=== PATIENT | female | born 1980 | race Caucasian/White ===

== ENCOUNTER → 2021-08-09 | Outpatient (CLI) | payer OTHER ==
[~2021-08-09] MED LIST: ALBU90I INH; ALBU90OI INH; ALBU90OI6 INH; ALPR.5 PO; ALPR.5CR PO; Amoxicillin500 MG PO; EFFEXOR; HYDACE5; IBUP800; LAMO100 PO; METPRE4DP PO; OXYACE5T PO; PENVK500 PO; PRED10 PO; PROAIR; Prednisone20 MG PO; QVAR7.3 G1 IH; VENL150ER PO; Ventolin Soln3 ML INH; Zofran Odt4 MG SL
[2021-08-10 12:10] LABS: HPV 16 Negative (Negative); HPV 18 Negative (Negative); HPV OTHER HR TYPES Negative (Negative)
== END ==
LOC: LAB SHORT 15:52 → LAB 15:52
PROVIDERS: Obstetrics & Gynecology
DX: Z01.419 Encounter for gynecological examination (general) (routine) without abnormal findings (principal)
CPT/HCPCS: 87624; G0123

== ENCOUNTER → 2021-08-09 | Outpatient (CLI) | payer OTHER | LOC: LAB SHORT 07:59 → LAB 07:59 | DX: N92.0 Excessive and frequent menstruation with regular cycle (principal) | CPT/HCPCS: 88305 ==

== ENCOUNTER → 2021-10-26 | Outpatient (CLI) | payer OTHER | END | disposition home or self-care (01) | LOC: LAB 13:36 → LAB SHORT 13:36 | DX: N30.00 Acute cystitis without hematuria (principal) | CPT/HCPCS: 87086 ==

== ENCOUNTER → 2022-07-11 | Outpatient (CLI) | payer OTHER | LOC: LAB SHORT 10:30 | DX: R30.0 Dysuria (principal) ==

== ENCOUNTER → 2022-10-17 | Outpatient (CLI) | payer OTHER | LOC: LAB SHORT 16:30 → LAB 16:30 | DX: R30.0 Dysuria (principal) | CPT/HCPCS: 87077; 87086; 87186 ==

== ENCOUNTER → 2022-12-04 | Outpatient (CLI) | payer OTHER | END | disposition home or self-care (01) | LOC: LAB SHORT 11:19 → PLD 11:19 | DX: D48.5 Neoplasm of uncertain behavior of skin (principal) | CPT/HCPCS: 88305 ==

== ENCOUNTER 2024-10-13 11:32 | Day surgery (SDC) | payer OTHER ==
[~2024-10-13] VITALS: Ht 152.4 cm; Wt 59.9 kg
[~2024-10-13 11:32] MED LIST changes: +NS 500 ML IV ONE
[2024-10-13] MEDS ORDERED: NS 50 ML IV ONE ×2 (12:41→12:49)
[2024-10-13] MEDS ORDERED: CeFAZolin Sodium 2,000 MG VIAL ONE ×2 (12:41→12:49)
--- NOTE | 2024-10-13 12:54 | NUR ---
10/13/24 1254 Kelsie Dixon TIME OUT DONE PRIOR TO BLOCK BY DR BENÍTEZ.
[2024-10-13] MEDS ORDERED: NS 500 ML IV ONE (12:55)
[2024-10-13] MEDS ORDERED: BUPROPION HCL200 M2 PO (12:57)
[2024-10-13 14:00] VITALS: BP 122/84
== END 2024-10-13 14:14 | disposition home or self-care (01) ==
LOC: ORSCSDS 11:32
PROVIDERS: Orthopaedic Surgery
PROC: 01N50ZZ Release Median Nerve, Open Approach (ICD-10-PCS; principal; 2024-10-13 13:30)
DX: G56.01 Carpal tunnel syndrome, right upper limb (principal); Z87.891 Personal history of nicotine dependence; Z79.899 Other long term (current) drug therapy
CPT/HCPCS: J0690; J7040

== ENCOUNTER → 2025-06-04 | Outpatient (CLI) | payer OTHER ==
[~2025-06-04] MED LIST changes: +BUPROPION HCL200 M2 PO; -NS 500 ML IV ONE
[2025-06-05 19:27] LABS: HEPATITIS B SURFACE ANTIBODY <3.10 IU/L
== END ==
LOC: LAB SHORT 13:44 → LAB 13:44
PROVIDERS: Hospitalist
DX: Z78.9 Other specified health status (principal)